=== PATIENT | male | born 1960 | race Caucasian/White ===

== ENCOUNTER 2016-08-09 07:28 | Emergency (ER) | payer OTHER, BC ==
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
--- NOTE | 2016-08-10 07:40 | ED MED RECONCILIATION SUMMARY ---
Patient: CHRISTIANNE LEVINE Medication Reconciliation Report [facility] VisitID: [id number] [address] [place] [address] 56y, M Registration Date/Time: 08/09/2016 Weight: 90.7 kg Height/Length: 69 in. BMI: 29.5 ALLERGIES: No Known Drug Allergy The patient's Home Medications are listed below: THE FOLLOWING MEDICATIONS NEED TO BE RECONCILED: Aspirin Oral (81 mg), daily Atorvastatin Calcium Oral Vitamin D Oral The source(s) of the original Home Medication information: Not obtained. The following Medications were given to the patient in the Emergency Department: None. The following Medications were prescribed to the patient: None.
--- NOTE | 2016-08-10 07:40 | ED DISCHARGE INSTRUCTIONS ---
Patient: CHRISTIANNE LEVINE General Instructions [facility] VisitID: [id number] [address] [place] [id number] 56y, M Registration Date/Time: 08/09/2016 Single superficial laceration to the chin.No foreign body present. INSTRUCTIONS Protect wound and keep wound area clean. Do not work today. Warnings: GENERAL WARNINGS: Return or contact your physician immediately if your condition worsens or changes unexpectedly, if not improving as expected, or if other problems arise. Follow-up with: Gilberto Rojas MD, [facility], , [facility], [address] [place] [address] Follow up in five days for wound check. ADDITIONAL INFORMATION Laceration, Face(Skin Glue) A laceration is a cut through the skin. A laceration on your face hasbeen closed with a type of skin glue. Home Care Medications: Acetaminophen (Tylenol) or ibuprofen (Motrin, Advil) may be taken for pain, unless another pain medicine was prescribed. NOTE: If you have chronic liver or kidney disease or ever had a stomach ulcer or GI bleeding, talk with your doctor before using these medications. General Care: Keep the wound clean and dry. You may shower or bathe as usual, but do not use soaps, lotions, or ointments on the wound area. Do not scrub the wound. After bathing, pat the wound dry with a soft towel. Do not scratch, rub, or pick at the film. Do not place tape directly over the film. Do not apply liquids (such as peroxide), ointments, or creams to the wound while the film is in place. Most facialskin wounds heal without problems. However, an infection sometimes occurs despite proper treatment. Therefore, watch for the signs of infection listed below. Follow Up as directed by the doctor or our staff. The skin glue film will fall off naturally in 5 to 10 days. Get Prompt Medical Attention if any of the following occur: Signs of infection: Fever of 100.4F (38C) or higher, or as directed by your healthcare provider Increasing pain in the wound Increasing redness or swelling Pus coming from the wound Wound bleeds more than a small amount or bleeding doesnt stop Wound edges come apart Laceration: Will There Be A Scar? A laceration is a cut through one or more layers of the skin. The goal of emergency treatment is to clean the wound and close it to prevent infection, control bleeding and speed healing. Cuts heal because the body is able to repair the skin by "sealing" the edges together with collagen, a kind of "skin cement." How deep your cut is, its location on your body, your age and the way your skin heals all determine how visible the final scar will be. Some persons tend to heal with more scar tissue than others. This cut will probably heal similar to other cuts you have had in the past. What You Can Do: There are a few simple things that you can do to limit the amount of scar that forms: 1) PREVENT INFECTION: An infected wound makes a bigger scar. Keep the wound clean and dry. Change the dressing and apply any ointment/cream as directed. 2) MASSAGE THE WOUND:After the stitches have been removed: Use a moisturizing cream or lotion containing Aloe or Vitamin E Oil and gently massage the skin around the wound with your fingertips (wash your hands first!). Do this twice a day for the first two weeks, then once a day for a month. This will increase the flow of oxygen and blood to the wound and prevent excess scar tissue from building up. 3) AVOID SUN EXPOSURE: During the first six months, avoid sun exposure since the scar may irizarry a much darker color than the skin around it. When in the sun, use SPF #50 (or greater) sun block on the scar, or cover the area with a hat or clothing. What To Expect: -- The cut will be sealed within 2 days and will be strong within 5-10 days. However, it will take at least SIX MONTHS for it to be fully healed. -- During the FIRST THREE MONTHS, you may notice the scar line getting more red or purple in color. The scar may become raised. The skin around the wound may feel thick and lumpy. -- During the FOURTH TO SIXTH MONTHS, this process begins to reverse. The red and purple color will fade, the scar line flattens, and the skin around it feels more normal. -- In most cases, the way the scar line looks after six months is the way it will remain, although there may be some continued improvement up to one year after the injury. Is There Anything Else That Can Be Done? If you do not like the way the scar looks after six months, a plastic surgeon may be able to perform a "scar revision." If you have any questions or problems as your wound heals, contact your doctor or this facility. We will be glad to assist you. You have been given the following additional information: Laceration, Face (Skin Glue) Laceration, How To Minimize Scar Do not work today. (Electronically signed by Renny Culver DO 08/10/2016 7:39)
--- NOTE | 2016-08-10 07:40 | ED MED RECONCILIATION SUMMARY ---
Patient: CHRISTIANNE LEVINE Medication Reconciliation Report [facility] VisitID: [id number] [address] [place] [address] 56y, M Registration Date/Time: 08/09/2016 Weight: 90.7 kg Height/Length: 69 in. BMI: 29.5 ALLERGIES: No Known Drug Allergy The patient's Home Medications are listed below: THE FOLLOWING MEDICATIONS NEED TO BE RECONCILED: Aspirin Oral (81 mg), daily Atorvastatin Calcium Oral Vitamin D Oral The source(s) of the original Home Medication information: Not obtained. The following Medications were given to the patient in the Emergency Department: None. The following Medications were prescribed to the patient: None.
--- NOTE | 2016-08-10 07:40 | ED MAR SUMMARY ---
..... Medication Administration Record [facility] [address] [place], [place] [id number] Patient: CHRISTIANNE LEVINE Visit ID: [id number] 56y, M Weight: 90.7 kg Height/Length: 69 in BMI: 29.5 ALLERGIES: No Known Drug Allergy
--- NOTE | 2016-08-10 07:40 | ED MAR SUMMARY ---
..... Medication Administration Record [facility] [address] [place], [place] [id number] Patient: CHRISTIANNE LEVINE Visit ID: [id number] 56y, M Weight: 90.7 kg Height/Length: 69 in BMI: 29.5 ALLERGIES: No Known Drug Allergy
== END 2016-08-09 08:25 | disposition home or self-care (01) ==
LOC: ED SRH 07:28
DX: S01.81XA Laceration without foreign body of other part of head, initial encounter (principal); W26.0XXA Contact with knife, initial encounter; Y99.0 Civilian activity done for income or pay; I10 Essential (primary) hypertension; Z79.82 Long term (current) use of aspirin
CPT/HCPCS: 83495